=== PATIENT | male | born 1970 | race Caucasian/White ===

== ENCOUNTER 2019-06-28 06:02 | Inpatient (IN) | payer BC ==
[2019-06-11 08:45] LABS: URINE BILIRUBIN NEGATIVE (Negative); URINE BLOOD NEGATIVE (Negative); URINE CLARITY CLEAR; URINE COLOR YELLOW; URINE GLUCOSE-RANDOM* NEGATIVE (Negative); URINE KETONES NEGATIVE (Negative); URINE LEUKOCYTES-REFLEX NEGATIVE (Negative); URINE NITRITE-REFLEX NEGATIVE (Negative); URINE PROTEIN (DIPSTICK) NEGATIVE (Negative); URINE UROBILINOGEN 0.2 E.U./dl (0.2-1.0)
[2019-06-11 08:46] LABS: HEMATOCRIT 39.9 % (42.0-52.0); HEMOGLOBIN 12.6 gm/dL (14.0-18.0); MCH 24.7 pg (26.0-34.0); MCHC 31.6 g/dL (28.0-37.0); MCV 78.1 fL (80.0-100.0); RBC 5.1 mil/uL (4.50-6.00); RDW 17.7 % (10.5-14.5); WBC 6.4 thou/uL (4.0-11.0)
[2019-06-11 09:00] LABS: PROTIME 9.9 Seconds (9.3-11.4)
[2019-06-11 09:04] LABS: ALBUMIN 3.3 g/dL (3.4-5.0); CALCIUM 9.2 mg/dL (8.5-10.1); CREATININE 1.1 mg/dL (0.7-1.3); POTASSIUM 4.6 mmol/L (3.5-5.1)
[~2019-06-28] VITALS: Ht 188 cm; Wt 106.6 kg
[~2019-06-28 06:02] MED LIST: CENTRUM SILVER1 EAC2 PO; CIMZIA400 MG/2 M SQ; COLESTID1 GM PO; COZAAR 25 MG TA25 M1 PO; DIOVAN320 MG PO; ENOXAPARIN30 MG/0.1 SUBQ; HYDROCHLOROTHIA25 M2 PO; MULTIVITAMINS1 EAC7 PO; NORCO 10-325 T1 EACH PO; PRINIVIL10 MG PO
[2019-06-28 07:06] VITALS: BP 136/92
--- NOTE | 2019-06-28 07:50 | H ---
[facility] [place] [address] HISTORY AND PHYSICAL Name: ETHAN JIMENEZ Room #: 150-4 ADM IN M.R.#: [id number] Admission: 06/28/19 Attend Phys: Timothy Guy MD Discharge: Date of : 68 Report #: [id number] THIS REPORT FOR: //name// CC: Timothy Carmona DATE OF SERVICE: 06/28/2019 CHIEF COMPLAINT: Degenerative osteoarthritis, left hip. HISTORY OF PRESENT ILLNESS: This active and fit 49-year-old gentleman has early degenerative arthritis involving multiple joints. He previously underwent right total hip replacement with very good result. He is now having persistent and progressive left hip pain and is anxious to proceed with left total hip arthroplasty. His general health is good. He is having no significant general medical problems nor any significant cardiac or pulmonary problems. He seems to be a satisfactory candidate for total hip replacement and we were planning to proceed today on 06/28/2019. PREVIOUS MEDICAL HISTORY: Notable for increased lipids and mild hypertension. His previous surgeries include right total hip replacement. CURRENT MEDICATIONS: Include lisinopril 10 mg daily, ibuprofen p.r.n. for hip pain, multivitamins. ALLERGIES: None. TOBACCO: None. ALCOHOL: Minimal. PHYSICAL EXAMINATION: GENERAL: He is mildly heavy with height 6 feet 2 inches and weight 240 pounds. He ambulates with an antalgic gait pattern on the left side. LUNGS: Clear. CARDIOVASCULAR: Reveals a regular rate and rhythm without significant murmurs. ABDOMEN: Soft and nontender. MUSCULOSKELETAL: The neck and back reveal normal contour and alignment with good range of motion and minimal discomfort. The upper extremities appear to be normal. The right hip reveals good range of motion and good stability consistent with a stable total hip arthroplasty. The left hip is much more uncomfortable with limited internal and external rotation and pain with weightbearing or hip flexion. There is moderate hip crepitus consistent with degenerative arthritis. Both knees demonstrate satisfactory alignment, range of motion with minimal crepitus and only minor discomfort. Distal neurologic and vascular status in both lower extremities appeared to be normal. [address] [address] HISTORY AND PHYSICAL Name: ETHAN JIMENEZ ARLETTE Room #: 150-4 [facility] IN ..#: [id number] Admission: 06/28/19 Attend Phys: Timothy Guy MD Discharge: Date of : 68 Report #: [id number] IMAGING: X-rays of the left hip reveal loss of joint space with [id number] contact at the apex of the joint. There is moderate spurring at the margin of the acetabulum. There is some cystic degeneration of the femoral head. Previous x-rays of the opposite right hip demonstrates satisfactory position of the total hip components. IMPRESSION: Moderate to moderately severe degenerative arthritis, left hip. He has failed with conservative management. He has a good result after total hip replacement on the right side. He is anxious to proceed with left total hip arthroplasty. We have discussed the potential risks and benefits of both the patient and his understand well. We will plan to proceed with left total hip arthroplasty today. <ELECTRONICALLY SIGNED> By: Timothy Guy MD 06/28/19 0750 [id number] Timothy Guy MD /nt
[2019-06-28 15:43] VITALS: BP 146/92
[2019-06-28 15:44] VITALS: BP 128/92
--- NOTE | 2019-06-28 17:13 | O ---
[facility] [place] [address] OPERATIVE REPORT Name: ETHAN JIMENEZ Room #: 435-P ADM IN M.R.#: [id number] Admission: 06/28/19 Attend Phys: Timothy Guy MD Discharge: Date of : 68 Report #: [id number] THIS REPORT FOR: //name// CC: Timothy Carmona DATE OF SERVICE: 06/28/2019 PREOPERATIVE DIAGNOSIS: Degenerative osteoarthritis, left hip. POSTOPERATIVE DIAGNOSIS: Degenerative osteoarthritis, left hip. PROCEDURE: Left total hip arthroplasty. SURGEON: Timothy Guy MD INDICATIONS: This 49-year-old gentleman has early degenerative osteoarthritis in multiple joints. He already has a right total hip, which is functioning nicely. He has significant pain and limited range of motion of the left side and is anxious to go ahead with total hip replacement. DESCRIPTION OF PROCEDURE: The patient was taken to the operating room where he was placed under general anesthesia. Prophylactic intravenous antibiotics were administered. He was turned to the right lateral decubitus position. The left hip, thigh and leg were meticulously prepped and draped. A slightly curving posterolateral skin incision was made. This was carried through fascia exposing the posterior aspect of the hip joint. The short external rotators and capsule were taken down and preserved and tagged with several FiberWire sutures. The hip was dislocated posteriorly and marked degenerative change on both the femoral head and acetabulum was noted. A femoral neck osteotomy was performed and the canal was prepared with reamers and hand broaches. The [employer]n [employer] Nephew hip system was utilized and a size 15 press-fit Synergy high offset femoral stem seemed to fit most appropriately. The calcar was trimmed down to an appropriate level. The trial was removed and attention directed to the acetabulum. The acetabulum was sequentially reamed, gradually advancing to a 56 mm reamer. A 56 mm cup was then inserted. It was positioned in alignment with his true acetabulum, placing this in about 20 degrees of anteversion and about 45 degrees off of vertical. It seated nicely and appeared to be secure. This was initially secured with 3 screws placed in the apex of the shell, each had satisfactory purchase. A 40-mm polyethylene liner was then inserted, placing the 20-degree elevated rim at about the 10 o'clock posterior position. It also seated nicely and appeared to be secure. Attention was directed back to the stem. The canal was further irrigated and then the Synergy size 15 porous high offset femoral stem was inserted, placing this in about 20 degrees of anteversion. It seated nicely and appeared to be stable. A trial reduction was performed and the hip seemed best suited for a +4 mm neck length. The [address] [address] OPERATIVE REPORT Name: ETHAN JIMENEZ Room #: 435-P [facility] IN M.R.#: [id number] Admission: 06/28/19 Attend Phys: Timothy Guy MD Discharge: Date of : 68 Report #: [id number] 40 mm head was selected and a +4 mm neck insert was applied. This component was then impacted on to the Ospina taper. It seated nicely and appeared to be secure. The hip was reduced. Alignment, range of motion, stability and leg length were assessed and felt to be satisfactory. The wound was copiously irrigated. Good hemostasis was established. A single Hemovac was left in the wound exiting through a separate stab incision. The capsule and short external rotators were repaired back to bone using the #2 FiberWire sutures passed through small drill holes in the greater trochanter. The fascia was then closed with multiple #1 Vicryl sutures. The subcutaneous tissues were closed with 0 Monocryl. The skin was closed with skin kelli. The patient was awakened and returned to recovery room in good condition. <ELECTRONICALLY SIGNED> By: Timothy Guy MD 06/28/19 1713 [id number] Timothy Guy MD /nt
[2019-06-28 20:50] VITALS: BP 112/76
--- NOTE | 2019-06-29 05:00 | NUR ---
PT AOX4. PT REPORTS PAIN 2/10 AT REST AND 8/10 WITH ACTIVITY IN LEFT HIP. REGULATORY ASSOCIATE PUMP IN PLACE WITH 1MG Q6MIN WITH 10MG/HR MAX OF MORPHINE. PT REFUSES APNEA MONITOR. PROVIDED EDUCATION IN REGARDS TO SIGNIFICANCE OF USE, PT CONTINUES TO REFUSE APNEA MONITORING. INCENTIVE SPIROMETER AT BEDSIDE AND ENCOURAGED. PT REFUSES TO REPOSITIONING, REPORTS HE CAN POSITION HISSELF. PT TOLERATING PO INTAKE WITHOUT ISSUE. PT AMBULATES WITH WALKER AND X1 ASSIST. PT VOIDS WITH URINAL. ENCOURAGED TO NOTIFY STAFF FOR ALL NEEDS. BED IN LOWEST POSITION, CALL LIGHT WITHIN REACH, BED ALARM ON. WILL CONTINUE TO MONITOR.
[2019-06-29 05:21] LABS: HEMATOCRIT 30.9 % (42.0-52.0); HEMOGLOBIN 9.8 gm/dL (14.0-18.0); MCH 24.9 pg (26.0-34.0); MCHC 31.5 g/dL (28.0-37.0); RBC 3.91 mil/uL (4.50-6.00); RDW 17.7 % (10.5-14.5); WBC 9.3 thou/uL (4.0-11.0)
[2019-06-29 05:45] VITALS: BP 126/88
[2019-06-29 07:18] VITALS: BP 119/74
[2019-06-29 10:09] LABS: CALCIUM 8.5 mg/dL (8.5-10.1); CREATININE 1.1 mg/dL (0.7-1.3); MAGNESIUM 1.8 mg/dL (1.8-2.4); POTASSIUM 4.1 mmol/L (3.5-5.1)
--- NOTE | 2019-06-29 14:57 | NUR ---
ASSESSMENT-PT LIVES AT HOME ALONE BUT HE WILL GO STAY WITH HIS PARENTS IN THE [place]. PT WAS INDEPENDENT OF ADLS AND AMBULATION PRIOR TO ADMISSION. HE AHAS A ROLLER WALKER ALREADY AND IS FAMILIAR WITH EXERCISES TO DO SINCE THIS IS HIS 2ND HIP OPERATION. PT VOICES NO CONCERNS RELATED TO DC. FOLLOWING TO ASSIST NEEDED.
[2019-06-29 16:10] VITALS: BP 118/74
--- NOTE | 2019-06-29 17:59 | NUR ---
Assumed care of pt at 0700. Pt a&ox4. Up SBA with gait-belt and walker. ROD STRAIGHTENER pump discontinued. PO pain meds administered. Pain controlled. Dressing c/d/i. Hemovac drain discontinued per order. Fall precautions in place. Will continue to monitor.
[2019-06-29 19:25] VITALS: BP 121/77
[2019-06-30 05:22] VITALS: BP 151/92
[2019-06-30 05:46] LABS: HEMATOCRIT 30.8 % (42.0-52.0); HEMOGLOBIN 9.7 gm/dL (14.0-18.0); MCH 24.5 pg (26.0-34.0); MCHC 31.5 g/dL (28.0-37.0); PLATELET COUNT 244 thou/uL (150-400); RBC 3.94 mil/uL (4.50-6.00); RDW 17.7 % (10.5-14.5); WBC 7.6 thou/uL (4.0-11.0)
[2019-06-30 06:03] LABS: CALCIUM 8.4 mg/dL (8.5-10.1); MAGNESIUM 1.9 mg/dL (1.8-2.4); POTASSIUM 3.9 mmol/L (3.5-5.1)
[2019-06-30 07:47] LABS: ABSOLUTE NEUTROPHILS 5.7 thou/uL (1.4-8.2)
[2019-06-30 07:48] LABS: ANISOCYTOSIS 1+; HYPOCHROMASIA SLIGHT; MICROCYTES 1+; POLYCHROMASIA OCCASIONAL
--- NOTE | 2019-06-30 08:29 | NUR ---
PATIENT ALERT AND ORIENTED X4. C/O PAIN, MED GIVEN. UP TO BATHROOM WITH WALKER/GB AND SBA. DRESSING ON L HIP INTACT. SLEPT OFF AND ON DURING NIGHT.
[2019-06-30 09:29] VITALS: BP 124/85
[2019-06-30] MEDS ORDERED: NORCO 10-325 T1 EACH PO (10:30)
[2019-06-30 12:38] VITALS: BP 124/85
--- NOTE | 2019-06-30 13:30 | NUR ---
PT. CARE ASSUMED AT 0700. A&Ox4. PAIN MANAGED WELL. UP WITH WALKER AND GAIT BELT AND STAND BY ASSIST. PT. TOOK SHOWER. PT. DISCHARGING WITH FATHER AND WHEELCHAIR. PT. SITTING IN RECLINER. CALL LIGHT IN REACH. PT. GOING HOME WITH PAIN MEDS AND BLOODTHINNER. MD GUAJARDO CALLED TO CHECK ON PT. DISPOSITION. PT. WALKED WITH PATIENT.
== END 2019-06-30 15:00 | disposition home or self-care (01) | DRG 470 ==
LOC: TBA 06:02 → PRE 08:05 → 4S 14:33 → PRE 16:18 → 4S 06-30 15:00
PROVIDERS: Nurse Practitioner; ADMIT Orthopaedic Surgery
PROC: 0SRB06A Replacement of Left Hip Joint with Oxidized Zirconium on Polyethylene Synthetic Substitute, Uncemented, Open Approach (ICD-10-PCS; principal; 2019-06-28)
DX: M16.12 Unilateral primary osteoarthritis, left hip (principal); K50.90 Crohn's disease, unspecified, without complications; D64.9 Anemia, unspecified; G47.33 Obstructive sleep apnea (adult) (pediatric); E66.9 Obesity, unspecified; Z96.641 Presence of right artificial hip joint; I10 Essential (primary) hypertension; Z79.2 Long term (current) use of antibiotics; Z79.891 Long term (current) use of opiate analgesic; Z68.30 Body mass index [BMI] 30.0-30.9, adult; Z79.899 Other long term (current) drug therapy
CPT/HCPCS: 10102; 50010; 50101; 50382; 50414; 51412; 53000; 53368; 56521; 56525; 56530; 57095; 62110; 62900; 70005